=== PATIENT | female | born 1990 | race Caucasian/White ===

== ENCOUNTER 2016-09-29 11:37 | Emergency (ER) | payer OTHER ==
[~2016-09-29] VITALS: Ht 149.9 cm; Wt 47.2 kg
[2016-09-29] MEDS ORDERED: KETOROLAC 60 MG/2 ML VIAL (J1885) IM ONE (13:00)
--- NOTE | 2016-09-29 13:51 | REP ---
Clinical: Right adnexal pain with history of endometriosis. . Technique: Transabdominal pelvic ultrasound followed by transvaginal examination for better evaluation of the endometrium and adnexa with color Doppler evaluation of the ovaries. Findings: Bladder is unremarkable and measures 5.1 x 3.4 x 1.4 cm . Heterogeneous anteverted uterus measures 8.1 x 4.2 x 5.3 cm . The endometrial complex measures 9 mm thickness and endocervical debris likely hemorrhagic was appreciated during examination. Bilateral ovaries are normal in vascularity without evidence for torsion. Right ovary measures 2.5 x 2.4 x 2.7 cm and includes 1.7 cm hemorrhagic follicle ; R I = 0.55 . Left ovary measures 2.1 x 1.3 x 2.3 cm ; R I = 0.70 . No pelvic fluid or adnexal mass lesion . Impression: 1. small amount of complex likely hemorrhagic debris within the endocervical canal should be correlated with menstrual cycle. 2. 1.7 cm hemorrhagic cyst in the right ovary possibly related to patient's symptoms. Consider follow-up examination in 4-6 weeks to evaluate for resolution. Signed by Pa Begum MD 09/29/2016 01:43 P
[2016-09-29] MEDS ORDERED: ZOFR4TAB3 PO (14:05)
[2016-09-29 14:12] VITALS: BP 104/72
== END 2016-09-29 14:18 | disposition home or self-care (01) ==
LOC: M ED 11:37
DX: N83.291 Other ovarian cyst, right side (principal); R11.0 Nausea
CPT/HCPCS: 76830; 76856; 81001; 81025; 87086; 93976; 96372; 99283; J1885

== ENCOUNTER 2017-12-21 16:45 | Emergency (ER) | payer OTHER ==
[2017-12-21 17:47] LABS: BASO # 0.1 10^3/uL (0.0-0.2); BASO % 0.6 % (0.0-1.0); EOS # 0.2 10^3/uL (0.0-0.50); EOS % 1.6 % (0.0-3.0); HEMATOCRIT 37.2 % (36.0-47.0); HEMOGLOBIN 12.6 g/dl (12.0-15.5); IMMATURE GRANULOCYTE % 0.3 % (0-3.0); LYMPH # 2.8 10^3/uL (1.5-6.5); LYMPH % 27.1 % (24.0-44.0); MEAN CORPUSCULAR HEMOGLOBIN 30.4 pg (27.0-33.0); MEAN CORPUSCULAR HGB CONC 33.9 g/dl (32.0-36.5); MEAN CORPUSCULAR VOLUME 89.6 fl (80.0-96.0); MONO # 0.8 10^3/uL (0.0-0.8); MONO % 7.2 % (0.0-5.0); NEUTROPHILS # 6.6 10^3/uL (1.8-7.7); NEUTROPHILS % 63.2 % (36.0-66.0); PLATELET COUNT, AUTOMATED 298 10^3/uL (150-450); RED BLOOD COUNT 4.15 10^6/uL (4.00-5.40); RED CELL DISTRIBUTION WIDTH 12.5 % (11.5-14.5); WHITE BLOOD COUNT 10.4 10^3/uL (4.0-10.0)
[2017-12-21] MEDS: ONDANSETRON 4MG/2ML VIAL (J2405) IV (17:54)
[2017-12-21] MEDS: KETOROLAC 30 MG/ML VIAL (J1885) IV (17:55)
[2017-12-21 18:18] LABS: CONTROL LINE HCG INT CTR LINE PRESENT; HCG, SERUM QUALITATIVE POSITIVE (NEGATIVE)
[2017-12-21 19:06] LABS: ALBUMIN 3.8 GM/DL (3.2-5.2); ALBUMIN/GLOBULIN RATIO 1.12 (1.00-1.93); ALKALINE PHOSPHATASE 49 U/L (45-117); ALT/SGPT 19 U/L (12-78); ANION GAP 9 MEQ/L (8-16); AST/SGOT 19 U/L (7-37); BILIRUBIN,DIRECT < 0.1 MG/DL (0.0-0.2); BILIRUBIN,TOTAL 0.1 MG/DL (0.2-1.0); BLOOD UREA NITROGEN 6 MG/DL (7-18); CALCIUM LEVEL 8.9 MG/DL (8.5-10.1); CARBON DIOXIDE LEVEL 25 MEQ/L (21-32); CHLORIDE LEVEL 105 MEQ/L (98-107); CREATININE FOR GFR 0.54 MG/DL (0.55-1.30); GLOMERULAR FILTRATION RATE > 60.0 (>60); GLUCOSE, FASTING 79 MG/DL (70-100); HCG, SERUM QUANTITATIVE 122825 MIU/ML; LIPASE 102 U/L (73-393); POTASSIUM SERUM 3.3 MEQ/L (3.5-5.1); SODIUM LEVEL 139 MEQ/L (136-145); TOTAL PROTEIN 7.2 GM/DL (6.4-8.2)
[2017-12-21 19:30] LABS: KETONE, URINE AUTO RFX TRACE mg/dL (NEGATIVE); LEUKOCYTE ESTERASE UR AUTO RFX NEGATIVE (NEGATIVE); MUCUS, URINE RFX SMALL (NEGATIVE); NITRITE, URINE AUTO RFX NEGATIVE (NEGATIVE); RBC, URINE AUTO RFX 7 /HPF (0-3); SPECIFIC GRAVITY UR AUTO RFX 1.016 (1.002-1.035); SQUAM EPITHELIAL CELL UR AURFX 1 /HPF (0-6); WBC, URINE AUTO RFX 0 /HPF (0-3)
[2017-12-21] MEDS: POTASSIUM CHLORIDE 10 MEQ SR TABLET PO (19:40)
== END 2017-12-21 21:26 | disposition home or self-care (01) ==
LOC: M ED 16:45
DX: Z32.01 Encounter for pregnancy test, result positive (principal); R10.31 Right lower quadrant pain; R10.32 Left lower quadrant pain; R11.2 Nausea with vomiting, unspecified; Z79.899 Other long term (current) drug therapy; Z3A.01 Less than 8 weeks gestation of pregnancy
CPT/HCPCS: J2405